=== PATIENT | female | born 1960 | race Two or more races ===

== ENCOUNTER 2023-12-02 13:34 | Emergency (ER) | payer OTHER ==
[~2023-12-02] VITALS: Ht 175.3 cm; Wt 72.6 kg
[2023-12-02] MEDS ORDERED: KETOROLAC TROMETHAMINE 60 MG VIAL IM STA (14:52)
== END 2023-12-02 16:28 | disposition home or self-care (01) ==
LOC: ER 13:35
DX: S42.212A Unspecified displaced fracture of surgical neck of left humerus, initial encounter for closed fracture (principal); S60.212A Contusion of left wrist, initial encounter; W01.0XXA Fall on same level from slipping, tripping and stumbling without subsequent striking against object, initial encounter; Y93.89 Activity, other specified; Y92.89 Other specified places as the place of occurrence of the external cause; Z88.8 Allergy status to other drugs, medicaments and biological substances
CPT/HCPCS: 73020; 73100; 96372; 99283; J1885